=== PATIENT | female | born 1990 | race Caucasian/White ===

== ENCOUNTER 2017-09-17 11:39 | Day surgery (SDC) | payer OTHER ==
[2017-09-17] MEDS ORDERED: DIPHENHYDRAMINE 50 MG INJ (14:12)
[2017-09-17] MEDS ORDERED: MIDAZOLAM 1 MG/ML 2 ML INJ ×3 (14:47→14:48)
[2017-09-17] MEDS ORDERED: FENTAnyl 50 MCG/ML VIAL (14:48)
== END 2017-09-17 14:59 | disposition home or self-care (01) ==
LOC: GIL 11:39
DX: K64.8 Other hemorrhoids (principal)
CPT/HCPCS: 45378; 84703